=== PATIENT | female | born 1995 | race Caucasian/White ===

== ENCOUNTER → 2018-07-25 16:20 | Emergency (ER) | payer BC, OTHER ==
[2018-07-25 20:14] LABS: ABS Basophils 0.1 10^3/ul (0-0.2); ABS Eosinophils 0.2 10^3/ul (0-0.6); ABS Lymphocytes 2.4 10^3/ul (1.0-4.8); ABS Monocytes 0.5 10^3/ul (0-0.8); ABS Neutrophils 6.1 10^3/ul (1.5-7.7); ABS Nucleated RBC 0 10^3/ul; Eosinophil % 1.7 %; Hematocrit 45 % (35-47); Hemoglobin 15.4 g/dl (12.0-16.0); Lymphocyte % 26.1 %; Mean Corpuscular HGB Conc 34 g/dl (31-36); Mean Corpuscular Hemoglobin 30 pg (27-31); Mean Corpuscular Volume 90 fL (80-97); Mean Platelet Volume 7.8 fL (7.4-10.4); Nucleated Red Blood Cells % 0; Platelet Count 331 10^3/ul (150-450); Red Blood Count 5.07 10^6/ul (4.00-5.40); Red Cell Distribution Width 13 % (10.5-15); White Blood Count 9.2 10^3/ul (3.5-10.8)
[2018-07-25 20:30] LABS: ALT 19 U/L (7-52); AST 21 U/L (13-39); Albumin 4.7 g/dL (3.2-5.2); Albumin/Globulin Ratio 1.7 (1-3); Alkaline Phosphatase 51 U/L (34-104); Anion Gap 5 mmol/L (2-11); BUN/Creatinine Ratio 17.2 (8-20); Blood Urea Nitrogen 15 mg/dL (6-24); CO2 Carbon Dioxide 29 mmol/L (22-32); Calcium 9.6 mg/dL (8.6-10.3); Chloride 104 mmol/L (101-111); EGFR African American 99.5 (>60); EGFR Non-African American 82.2 (>60); Globulin 2.7 g/dL (2-4); Glucose 91 mg/dL (70-100); Sodium 138 mmol/L (135-145); Total Protein 7.4 g/dL (6.4-8.9)
[2018-07-25 20:36] LABS: HCG Pregnancy < 0.60 mIU/mL
--- NOTE | 2018-07-25 21:05 | ED ---
Back Pain - HPI Summary HPI Summary: This patient is a 22 year old F presenting to [facility] with a chief complaint of a sharp shooting back pain since 16:00 yesterday. The pain was sudden onset when she stood up with no obvious cause. 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 She said this is common. Patient denies any symptoms during or immediately after the games. Last night, she had worsening pain and SOB. This morning she had difficulty talking because the pain was so severe. She was seen at [facility] this morning. Patient reports weakness, SOB, and difficulty speaking secondary to the pain. Patient denies fevers, chills, cold symptoms, cough, LOC, pain or swelling in LE. Patient is on control pills. - History of Current Complaint Chief Complaint: EDChestWallPain Stated Complaint: RIB PAIN/SOB Time Seen by Provider: 07/25/18 20:56 Hx Obtained From: Patient Onset/Duration: Sudden Onset Onset/Duration: Started Days Ago - 16:00 yesterday, Still Present Timing: Constant Severity Initially: Moderate Severity Currently: Moderate Pain Intensity: 4 Pain Scale Used: 0-10 Numeric Aggravating Symptom(s): Movement Associated Signs And Symptoms: Positive: Weakness, Other - SOB, difficulty speaking secondary to back pain. Denies chills, cold symptoms, cough, LOC, pain in LE, and swelling in LE.. Negative: Fever - Allergies/Home Medications Allergies/Adverse Reactions: Allergies Allergy/AdvReac Type Severity Reaction Status Date / Time corn Allergy Abdominal Verified 07/25/18 17:02 Pain rice Allergy Abdominal Verified 07/25/18 17:02 Pain soy Allergy Abdominal Verified 07/25/18 17:02 Pain Sulfa (Sulfonamide Allergy See Comment Verified 07/25/18 17:02 Antibiotics) wheat Allergy Abdominal Verified 07/25/18 17:02 Pain Home Medications: Home Medications l-Norgest/E.estradiol-E.estrad [Levono-E Estrad 0.10-0.02-0.01] 1 tab PO DAILY 07/25/18 [History Confirmed 07/25/18] PMH/Surg Hx/FS Hx/Imm Hx Endocrine/Hematology History: Denies: Hx Diabetes Cardiovascular History: Denies: Hx Hypertension, Hx Pacemaker/ICD History: Reports: Other Problems/Disorders - Endometriosis Denies: Hx Renal Disease Sensory History: Denies: Hx Hearing Aid Psychiatric History: Denies: Hx Panic Disorder - Immunization History Date of Tetanus Vaccine: within 10 years Date of Influenza Vaccine: 2 years ago Infectious Disease History: No Infectious Disease History: Denies: Traveled Outside the [place] in Last 30 Days - Family History Known Family History: Positive: Cardiac Disease - Aortic dissection - grandmother, Diabetes - Social History Alcohol Use: Occasionally Substance Use Type: Reports: None Smoking Status (MU): Never Smoked Tobacco Review of Systems Positive: Other - Difficulty speaking secondary to pain. Negative: Fever, Chills Positive: Shortness Of Breath. Negative: Cough, Other - cold symptoms Positive: Other - Sharp shooting upper back pain. Denies pain or swelling in LE. Positive: Weakness. Negative: Syncope All Other Systems Reviewed And Are Negative: Yes Physical Exam - Summary Physical Exam Summary: Appearance: Well-appearing, Well-nourished, lying in bed comfortably Skin: Warm, dry, no obvious rash Eyes: sclera anicteric, no conjunctival pallor ENT: mucous membranes moist, pharynx appears normal Neck: Supple, nontender Respiratory: Clear to auscultation, no signs of respiratory distress Cardiovascular: Normal S1, S2. No murmurs. Normal distal pulses in tibial and radial bilaterally. Abdomen: Soft, nontender, normal active bowel sounds present Musculoskeletal: Normal, Strength/ROM Intact Neurological: A&Ox3, awake and alert, mentation is normal, speech is fluent and appropriate Psychiatric: affect is normal, does not appear anxious or depressed Triage Information Reviewed: Yes Vital Signs On Initial Exam: Initial Vitals Temp Pulse Resp BP Pulse Ox 98.2 F 56 16 139/73 97 07/25/18 16:59 07/25/18 16:59 07/25/18 16:59 07/25/18 16:59 07/25/18 16:59 Vital Signs Reviewed: Yes Diagnostics - Vital Signs Vital Signs Temp Pulse Resp BP Pulse Ox 07/25/18 18:46 99.6 F 56 16 122/65 98 07/25/18 16:59 98.2 F 56 16 139/73 97 - Laboratory Lab Results: Lab Results 07/25/18 07/25/18 07/25/18 Range/Units 20:05 20:05 20:05 WBC 9.2 (3.5-10.8) 10^3/ul RBC 5.07 (4.00-5.40) 10^6/ul Hgb 15.4 (12.0-16.0) g/dl Hct 45 (35-47) % MCV 90 (80-97) fL MCH 30 (27-31) pg MCHC 34 (31-36) g/dl RDW 13 (10.5-15) % Plt Count 331 (150-450) 10^3/ul MPV 7.8 (7.4-10.4) fL Neut % (Auto) 65.9 % Lymph % (Auto) 26.1 % Bureau % (Auto) 5.6 % Eos % (Auto) 1.7 % Baso % (Auto) 0.7 % Absolute Neuts (auto) 6.1 (1.5-7.7) 10^3/ul Absolute Lymphs (auto) 2.4 (1.0-4.8) 10^3/ul Absolute Monos (auto) 0.5 (0-0.8) 10^3/ul Absolute Eos (auto) 0.2 (0-0.6) 10^3/ul Absolute Basos (auto) 0.1 (0-0.2) 10^3/ul Absolute Nucleated RBC 0 10^3/ul Nucleated RBC % 0 D-Dimer, Quantitative < 200 (Less Than 230) ng/mL Sodium 138 (135-145) mmol/L Potassium 4.0 (3.5-5.0) mmol/L Chloride 104 (101-111) mmol/L Carbon Dioxide 29 (22-32) mmol/L Anion Gap 5 (2-11) mmol/L BUN 15 (6-24) mg/dL Creatinine 0.87 (0.51-0.95) mg/dL Est GFR ( Amer) 99.5 (>60) Est GFR (Non-Af Amer) 82.2 (>60) BUN/Creatinine Ratio 17.2 (8-20) Glucose 91 (70-100) mg/dL Calcium 9.6 (8.6-10.3) mg/dL Total Bilirubin 0.70 (0.2-1.0) mg/dL AST 21 (13-39) U/L ALT 19 (7-52) U/L Alkaline Phosphatase 51 (34-104) U/L Troponin I 0.00 (<0.04) ng/mL Total Protein 7.4 (6.4-8.9) g/dL Albumin 4.7 (3.2-5.2) g/dL Globulin 2.7 (2-4) g/dL Albumin/Globulin Ratio 1.7 (1-3) Beta HCG, Quant < 0.60 mIU/mL Result Diagrams: 07/25/18 20:05 07/25/18 20:05 Lab Statement: Any lab studies that have been ordered have been reviewed, and results considered in the medical decision making process. - Radiology Chest X-Ray Radiology Interpretation Completed By: Radiologist Summary of Radiographic Findings: 18:16. NO EVIDENCE FOR ACUTE FINDING. ED Physician has reviewed this imaging report. - EKG 18:16 Cardiac Rate: Bradycardia - 48 BPM Summary of EKG Findings: Sinus bradychardia, otherwise normal EKG. Back Pain Course/Dx - Course Course Of Treatment: This patient is a 22 year old F presenting to [facility] with a chief complaint of a sharp shooting back pain since 16:00 yesterday. The patient 's lab work, chest x-ray, and EKG were all unremarkable. The patient was discharged with instructions to return with new or worsening symptoms. The patient understands and agrees. - Diagnoses Provider Diagnoses: Chest wall pain Discharge - Sign-Out/Discharge Documenting (check all that apply): Patient Departure - D/C Patient Received Moderate/Deep Sedation with Procedure: No - Discharge Plan Condition: Stable Disposition: HOME Patient Education Materials: Chest Wall Pain (ED) Referrals: [facility] [Outside] - 3 Days (if not improving) No Primary Care Phys,NOPCP [Primary Care Provider] - - Billing Disposition and Condition Condition: STABLE Disposition: Home - Attestation Statements Document Initiated by Scribe: Yes Documenting Scribe: Lee Bedoya Provider For Whom Gonzalo is Documenting (Include Credential): Nestor Del Real MD Scribelvia Attestation: Lee Nixon scribed for Nestor Del Real MD on 07/26/18 at 2208. Scribe Documentation Reviewed: Yes Provider Attestation: The documentation as recorded by the Lee alvarez accurately reflects the service I personally performed and the decisions made by Nestor olivares MD Status of Scribe Document: Viewed
[2018-07-25 21:37] VITALS: BP 107/74
== END | disposition home or self-care (01) ==
LOC: ED 16:20
DX: R53.1 Weakness (principal); R06.02 Shortness of breath; M54.9 Dorsalgia, unspecified; R07.89 Other chest pain
CPT/HCPCS: 36415; 71045; 80053; 84484; 84702; 85025; 85379; 93005; 99282